=== PATIENT | male | born 1935 | race Caucasian/White ===

== ENCOUNTER 2017-09-11 19:37 | Inpatient (IN) | payer OTHER, BC ==
[~2017-09-11] VITALS: Ht 188 cm; Wt 104.1 kg
[2017-09-11 19:42] VITALS: Ht 188 cm; Wt 104.1 kg
[2017-09-11 20:26] LABS: CALCIUM 8.4 mg/dL (8.5-10.1); CHLORIDE SERUM 106 mmol/L (98-107); CREATININE SERUM 1.5 mg/dL (0.7-1.3); GLUCOSE SERUM 129 mg/dL (74-106); POTASSIUM SERUM 4.2 mmol/L (3.5-5.1); SODIUM SERUM 143 mmol/L (136-145)
[2017-09-11 20:30] LABS: ALBUMIN 3.4 g/dL (3.4-5.0); ALKALINE PHOSPHATASE 66 U/L (46-116); ALT/SGPT 17 U/L (16-63); AST/SGOT 17 U/L (15-37); BILIRUBIN TOTAL 0.4 mg/dL (0.20-1.00); TOTAL PROTEIN, SERUM 6.6 g/dL (6.4-8.2)
[2017-09-11 20:38] LABS: BASOPHIL % 0.4 % (0-2); PLATELET COUNT 171 x10^3mcL (130-400)
[2017-09-11] MEDS ORDERED: DILTIAZEM HCL120 M2 (20:42)
[2017-09-11] MEDS ORDERED: CARVEDILOL25 M1 PO (20:42)
[2017-09-11] MEDS ORDERED: ZESTRIL20 MG (20:43)
[2017-09-11] MEDS ORDERED: SIMVASTATIN10 M1 (20:43)
[2017-09-11] MEDS ORDERED: ELIQUIS5 MG PO (20:43)
[2017-09-11] MEDS ORDERED: METHIMAZOLE5 MG (20:43)
[2017-09-11 20:45] LABS: RED CELL DISTRIBUTION WIDTH 23.3 % (11.5-14.5)
[2017-09-11 22:12] LABS: rbc morphology (normal/abnorm) ABNORMAL (NORMAL); target cell (codocyte) 1+
[2017-09-11] MEDS ORDERED: DILTIAZEM HCL120 M2 PO (22:48)
[2017-09-11 23:36] LABS: FREE T4 1.59 ng/dL (0.76-1.46)
[2017-09-11 23:37] LABS: FREE THYROXINE INDEX 5.7 ug/dL (1.4-4.5); T4(THYROXINE) 16.3 ug/dL (4.7-13.3)
[2017-09-12] VITALS (8 sets, daily range): BP systolic 126–157; BP diastolic 76–92
[2017-09-12 00:01] LABS: CHOLESTEROL/HDL RATIO 4.4; MAGNESIUM 1.6 mg/dL (1.8-2.4)
[2017-09-12 00:34] LABS: UA SPECIFIC GRAVITY >=1.030 (1.005-1.035); microscopic required? YES; urine erythrocyte NEGATIVE (NEGATIVE)
[2017-09-12 02:53] LABS: T3 TOTAL 1.48 ng/mL
[2017-09-12 09:18] LABS: CALCIUM 8.7 mg/dL (8.5-10.1); CARBON DIOXIDE 23.6 mmol/L (21-32); CHLORIDE SERUM 104 mmol/L (98-107); CREATININE SERUM 1.7 mg/dL (0.7-1.3); GLUCOSE SERUM 205 mg/dL (74-106); MAGNESIUM 2.6 mg/dL (1.8-2.4); PHOSPHOROUS 3.7 mg/dL (2.5-4.9); POTASSIUM SERUM 3.8 mmol/L (3.5-5.1); SODIUM SERUM 141 mmol/L (136-145)
[2017-09-12 09:31] LABS: PLATELET COUNT 155 x10^3mcL (130-400)
[2017-09-12 09:37] LABS: RED CELL DISTRIBUTION WIDTH 23.2 % (11.5-14.5)
[2017-09-12 13:52] LABS: BAND NEUTROPHIL 2 % (0-10); MONOCYTE 3 % (0-7); SEGMENTED NEUTROPHILS 77 % (37-75); rbc morphology (normal/abnorm) ABNORMAL (NORMAL)
[2017-09-12 13:53] LABS: PLATELET MORPHOLOGY LARGE PLATELET SEEN
[2017-09-13] VITALS (7 sets, daily range): BP systolic 138–161; BP diastolic 74–119
[2017-09-13 07:19] LABS: PLATELET COUNT 181 x10^3mcL (130-400); RED CELL DISTRIBUTION WIDTH 23.7 % (11.5-14.5)
[2017-09-13 07:38] LABS: CALCIUM 8.5 mg/dL (8.5-10.1); CARBON DIOXIDE 24.4 mmol/L (21-32); CHLORIDE SERUM 102 mmol/L (98-107); CREATININE SERUM 1.7 mg/dL (0.7-1.3); GLUCOSE SERUM 112 mg/dL (74-106); MAGNESIUM 2.1 mg/dL (1.8-2.4); SODIUM SERUM 141 mmol/L (136-145)
[2017-09-13 14:46] LABS: SEGMENTED NEUTROPHILS 68 % (37-75)
[2017-09-13 14:47] LABS: BAND NEUTROPHIL 3 % (0-10); MONOCYTE 18 % (0-7)
[2017-09-13 14:48] LABS: PLATELET MORPHOLOGY LARGE PLATELET SEEN; rbc morphology (normal/abnorm) ABNORMAL (NORMAL)
[2017-09-14 04:50] VITALS: BP 151/92
[2017-09-14 07:04] LABS: CALCIUM 8.2 mg/dL (8.5-10.1); CARBON DIOXIDE 28.2 mmol/L (21-32); CHLORIDE SERUM 103 mmol/L (98-107); CREATININE SERUM 1.5 mg/dL (0.7-1.3); GLUCOSE SERUM 89 mg/dL (74-106); POTASSIUM SERUM 3.9 mmol/L (3.5-5.1); SODIUM SERUM 140 mmol/L (136-145)
[2017-09-14 07:33] LABS: PLATELET COUNT 171 x10^3mcL (130-400)
[2017-09-14 07:34] LABS: RED CELL DISTRIBUTION WIDTH 23.5 % (11.5-14.5)
[2017-09-14 08:59] LABS: BAND NEUTROPHIL 1 % (0-10); BASOPHIL 0 % (0-2)
[2017-09-14 09:00] LABS: MONOCYTE 16 % (0-7); SEGMENTED NEUTROPHILS 60 % (37-75)
[2017-09-14 09:01] LABS: rbc morphology (normal/abnorm) ABNORMAL (NORMAL)
[2017-09-14] MEDS ORDERED: LEVOFLOXACIN500 M1 PO (09:09)
[2017-09-14] MEDS ORDERED: LAC PO (09:09)
[2017-09-14] MEDS ORDERED: CLINDAMYCIN HC300 MG PO (09:09)
[2017-09-14] MEDS ORDERED: VENTOLIN H0.09 MG/A1 INH (09:17)
[2017-09-14 09:18] VITALS: BP 147/92
[2017-09-14] MEDS ORDERED: MEDDP PO (11:13)
[2017-09-14] MEDS ORDERED: LASIX20 MG PO (11:23)
[2017-09-14 11:53] VITALS: BP 144/93
[2017-09-14 13:37] VITALS: BP 147/92
== END 2017-09-14 14:57 | disposition home or self-care (01) | DRG 177 ==
LOC: ED 19:37 → DU 22:46
PROVIDERS: Emergency Medicine; Family Medicine
DX: J69.0 Pneumonitis due to inhalation of food and vomit (principal); I50.43 Acute on chronic combined systolic (congestive) and diastolic (congestive) heart failure; N17.0 Acute kidney failure with tubular necrosis; N39.0 Urinary tract infection, site not specified; E83.51 Hypocalcemia; E83.42 Hypomagnesemia; C67.9 Malignant neoplasm of bladder, unspecified; R73.03 Prediabetes; E78.5 Hyperlipidemia, unspecified; D64.9 Anemia, unspecified; M54.5 Low back pain; G89.29 Other chronic pain; E05.90 Thyrotoxicosis, unspecified without thyrotoxic crisis or storm; Z87.891 Personal history of nicotine dependence; Z68.30 Body mass index [BMI] 30.0-30.9, adult
CPT/HCPCS: 36600; 83880; 84439; 87804; 97110-GP; 97116-GP; 97530-GP; J0456; J0696; J1642; J1940; J1956; J2930; J3475; J3490; J7030; J7050; J7613; J7620; J7626; J7644; Q0092